=== PATIENT | female | born 1985 | race Caucasian/White ===

== ENCOUNTER → 2017-03-28 | Outpatient (CLI) | payer OTHER ==
[~2017-03-28] MED LIST: IBUP-103 PO
== END | disposition home or self-care (01) ==
LOC: C.LAB1850 07:33
PROVIDERS: ATTEND Obstetrics & Gynecology
DX: Z32.00 Encounter for pregnancy test, result unknown (principal)

== ENCOUNTER → 2017-04-18 | Outpatient (CLI) | payer OTHER ==
[2017-04-18 18:27] LABS: MANUAL MICROSCOPIC REQUIRED? NO; REVIEW REQ? NO; URINE APPEARANCE CLEAR (CLEAR); URINE BILIRUBIN NEG (NEG); URINE COLOR YELLOW; URINE NITRITE NEG (NEG); URINE SPECIFIC GRAVITY 1.012 (1.000-1.030); UROBILINOGEN NEG (NEG)
== END | disposition home or self-care (01) ==
LOC: C.LABSPEC 17:29
PROVIDERS: ATTEND Obstetrics & Gynecology
DX: Z34.01 Encounter for supervision of normal first pregnancy, first trimester (principal)

== ENCOUNTER → 2017-04-26 | Outpatient (CLI) | payer OTHER ==
[2017-04-30 02:42] LABS: CHLAMYDIA TRACH RNA*** NOT DETECTED (NOT DETECTED); GC (NEIS GONORRHOEAE)RNA** NOT DETECTED (NOT DETECTED)
== END | disposition home or self-care (01) ==
LOC: C.LABSPEC 15:36
PROVIDERS: ATTEND Obstetrics & Gynecology
DX: Z34.01 Encounter for supervision of normal first pregnancy, first trimester (principal)

== ENCOUNTER → 2017-04-26 | Outpatient (CLI) | payer OTHER ==
[2017-04-26 15:36] LABS: BASO % 0.5 %; BASO ABS # 0.05 K/uL (0-0.2); COMPLETE YES; EOS % 2.1 %; HEMATOCRIT 37.3 % (37-47); IG% 0.1 %; LYMPH % 24.4 %; LYMPH ABS # 2.28 K/uL (1.2-3.4); MEAN CELL VOLUME 86.9 fL (80-100); MEAN CORPUSCULAR HEMOGLOBIN 30.8 pg (25-34); MEAN CORPUSCULAR HGB CONC 35.4 g/dl (32-36); MEAN PLATELET VOLUME 10.3 fL (7.4-10.4); MONO % 9.3 %; NEUT % 63.6 %; PLATELET COUNT 348 K/uL (130-400); RED BLOOD COUNT 4.29 M/uL (4.2-5.4); WHITE BLOOD COUNT 9.33 K/uL (4.8-10.8)
== END | disposition home or self-care (01) ==
LOC: C.LAB1850 14:48
PROVIDERS: ATTEND Obstetrics & Gynecology
DX: Z34.01 Encounter for supervision of normal first pregnancy, first trimester (principal)

== ENCOUNTER → 2017-06-20 | Outpatient (CLI) | payer OTHER ==
[2017-06-20 16:42] LABS: GTGD 50 Grams
[2017-06-25 15:09] LABS: AFP CONCENTRATION 28.6 NG/ML; AFP MULTIPLE OF MEDIAN 0.75; AFPTS GESTATIONAL AGE 16.4 WEEKS; AFPTS INSULIN DEP DIABETIC? NO; AFPTS MATERNAL WT 130 LBS; ALPHA-FETOPROTEIN RACE CAUCASIAN=W; EDD DETERMINED BY ULTRASOUND; HISTORY OF NTD NO; REPEAT SAMPLE? NO
== END | disposition home or self-care (01) ==
LOC: C.LAB1850 14:31
PROVIDERS: ATTEND Obstetrics & Gynecology
DX: Z34.02 Encounter for supervision of normal first pregnancy, second trimester (principal); Z3A.00 Weeks of gestation of pregnancy not specified

== ENCOUNTER → 2017-09-12 | Outpatient (CLI) | payer OTHER ==
[2017-09-12 17:39] LABS: HEMATOCRIT 35.5 % (37-47)
[2017-09-12 17:46] LABS: GTGD 50 Grams
[2017-09-12 18:34] LABS: URINE APPEARANCE CLEAR (CLEAR); URINE BILIRUBIN NEG (NEG); URINE COLOR YELLOW; URINE NITRITE NEG (NEG); URINE PH 6.5 (4.5-7.5); URINE SPECIFIC GRAVITY 1.015 (1.000-1.030); UROBILINOGEN NEG (NEG)
[2017-09-12 18:44] LABS: MANUAL MICROSCOPIC REQUIRED? NO; REVIEW REQ? NO
== END | disposition home or self-care (01) ==
LOC: C.LAB1850 17:10
PROVIDERS: ATTEND Obstetrics & Gynecology
DX: Z34.03 Encounter for supervision of normal first pregnancy, third trimester (principal)

== ENCOUNTER → 2017-11-14 | Outpatient (CLI) | payer OTHER | END | disposition home or self-care (01) | LOC: C.LABSPEC 18:10 | PROVIDERS: ATTEND Obstetrics & Gynecology | DX: Z34.03 Encounter for supervision of normal first pregnancy, third trimester (principal) ==

== ENCOUNTER 2017-11-22 07:23 | Outpatient (CLI) | payer OTHER ==
[~2017-11-22] VITALS: Ht 167.6 cm; Wt 67.1 kg
[2017-11-22] MEDS ORDERED: TERBUTALINE SULFATE 1 MG/ML VIAL SQ ONE (07:45)
[2017-11-22 09:30] VITALS: Ht 167.6 cm; Wt 67.1 kg
[2017-11-22] MEDS ORDERED: PRENTAB26 PO (10:18)
[2017-12-01] MEDS ORDERED: OXYC-57 PO (08:19)
[2017-12-01] MEDS ORDERED: MTR600X PO (08:19)
== END 2017-11-22 09:45 | disposition home or self-care (01) ==
LOC: C.OPB 07:23 → C.LD 07:25 → C.OPB 09:45
PROVIDERS: ATTEND Obstetrics & Gynecology
DX: O32.1XX0 Maternal care for breech presentation, not applicable or unspecified (principal); Z3A.38 38 weeks gestation of pregnancy

== ENCOUNTER 2017-11-29 05:50 | Inpatient (IN) | payer OTHER ==
--- NOTE | 2017-11-28 11:45 | HISTORY & PHYSICAL EXAMINATION ---
DATE OF ADMISSION: 11/29/2017 HISTORY OF PRESENT ILLNESS: Olivia will be 39 weeks on November 29. She has breech presentation. This was confirmed on ultrasound multiple times. Because of that, she is scheduled for a primary section. has been uncomplicated. She has no major health problems bar scoliosis. PAST HISTORY: She has never been . PAST MEDICAL HISTORY: Scoliosis. PAST SURGICAL HISTORY: No major surgeries. MEDICATIONS: Prenatals. DRUG ALLERGIES: PENICILLIN; HOWEVER, THIS WAS ONLY A RASH A CHILD. IODINE SOLUTION AND BEE STINGS. SOCIAL HISTORY: Nonsmoker and nondrinker. FAMILY HISTORY: Negative. PHYSICAL EXAMINATION: VITAL SIGNS: Stable. She is afebrile. Blood pressure 110/70 and weight 145. CHEST: Clear. CARDIOVASCULAR: Normal rate and rhythm. No audible murmur. ABDOMEN: Gravid. heart rate 140. Ultrasound confirms breech presentation. IMPRESSION AND PLAN: Reviewed risks, benefits and alternatives. Really, there is no good alternative to section. The patient agrees. Discussed risks of including, but not limited to the risks of bleeding, infection, injury to bowel, bladder, ureter, vessels, deep vein thrombosis and pulmonary embolus. After full informed discussion, we will arrange for . Discussed the use of Ancef as well. THE PATIENT HAS A MILD PENICILLIN REACTION WHEN SHE WAS 5. She believes she has taken Keflex in the past. I think is the best choice for her.
[2017-11-28 12:52] VITALS: BMI 23.0
[2017-11-28 13:24] LABS: BASO % 0.3 %; BASO ABS # 0.03 K/uL (0-0.2); EOS % 0.9 %; EOS ABS # 0.09 K/uL (0-0.5); HEMATOCRIT 39.1 % (37-47); HEMOGLOBIN 13.4 g/dL (12.0-16.0); IG# 0.03 K/uL (0.00-0.02); LYMPH % 24.4 %; LYMPH ABS # 2.38 K/uL (1.2-3.4); MEAN CORPUSCULAR HEMOGLOBIN 29.1 pg (25-34); MEAN CORPUSCULAR HGB CONC 34.3 g/dl (32-36); MEAN PLATELET VOLUME 10.3 fL (7.4-10.4); MONO % 6.4 %; MONO ABS # 0.62 K/uL (0.11-0.59); NEUT % 67.7 %; NEUT ABS # 6.59 K/uL (1.4-6.5); PLATELET COUNT 313 K/uL (130-400); RED CELL DISTRIBUTION WIDTH CV 13.6 % (11.5-14.5); RED CELL DISTRIBUTION WIDTH SD 41.6 fL (36.4-46.3); WHITE BLOOD COUNT 9.74 K/uL (4.8-10.8)
[2017-11-29] VITALS (10 sets, daily range): BP systolic 100–110; BP diastolic 66–75; PULSE 54–68; TEMP 36.4–37.3; O2SAT 98–100; Ht 167.6 cm; Wt 66.0 kg
[~2017-11-29] VITALS: Ht 167.6 cm; Wt 66.0 kg
[~2017-11-29 05:50] MED LIST changes: -IBUP-103 PO; +PRENTAB26 PO
[2017-11-29] MEDS ORDERED: CEFAZOLIN IV 2,000 MG in SYRINGE 0 ML IV SCH (06:00)
[2017-11-29] MEDS ORDERED: CITRIC ACID/SODIUM CITRATE 15 ML UDC PO SCH (06:00)
[2017-11-29 06:17] LABS: BASO % 0.4 %; BASO ABS # 0.04 K/uL (0-0.2); EOS % 1.8 %; EOS ABS # 0.18 K/uL (0-0.5); HEMATOCRIT 38.8 % (37-47); HEMOGLOBIN 13.6 g/dL (12.0-16.0); IG# 0.05 K/uL (0.00-0.02); LYMPH % 27.2 %; LYMPH ABS # 2.68 K/uL (1.2-3.4); MEAN CELL VOLUME 84.3 fL (80-100); MEAN CORPUSCULAR HEMOGLOBIN 29.6 pg (25-34); MEAN PLATELET VOLUME 10.4 fL (7.4-10.4); MONO % 9.3 %; MONO ABS # 0.92 K/uL (0.11-0.59); NEUT % 60.8 %; PLATELET COUNT 291 K/uL (130-400); RED CELL DISTRIBUTION WIDTH CV 13.6 % (11.5-14.5); WHITE BLOOD COUNT 9.87 K/uL (4.8-10.8)
[2017-11-29 06:18] LABS: MEAN CORPUSCULAR HGB CONC 35.1 g/dl (32-36)
[2017-11-29] MEDS ORDERED: NURSING VERBAL MED ORDER ONE (06:30)
[2017-11-29] MEDS ORDERED: LACTATED RINGER'S 1000ML 1,000 ML IV ONE (06:45)
--- NOTE | 2017-11-29 07:25 | History & Physical Bridge Note ---
H&P Re-Evaluation Bridge Note: I have examined the patient, reviewed the History & Physical and in the interval since the performance of the History & Physical I have noted the following changes of clinical significance: No changes noted
[2017-11-29] MEDS ORDERED: CITRIC ACID/SODIUM CITRATE 15 ML UDC PO ONE (07:30)
[2017-11-29] MEDS ORDERED: OXYTOCIN INJ 10 UNITS/ML VIAL ONE (07:31)
[2017-11-29] MEDS ORDERED: FENTANYL CITRATE INJ 50 MCG/1 ML 2 ML VIAL ONE (07:34)
[2017-11-29] MEDS ORDERED: MoRPHine SULFATE PF 1 MG/ML 10 ML AMP/VIAL ONE (07:34)
[2017-11-29] MEDS ORDERED: PHENYLEPHRINE 100MCG/ML 5ML SYR ONE (08:32)
--- NOTE | 2017-11-29 08:36 | [facility] Post Operative Brief Note ---
Immediate Operative Summary Operative Date Nov 29, 2017. Pre-Operative Diagnosis Primary caesarean section for breech presentation Post-Operative Diagnosis same Procedure(s) Performed low section transverse caesarean section delivery for live female at [address] Imelda Miranda Fur Designer Surgeon(s) Dr. Imelda Monk Estimated Blood Loss 500 cc Findings Consistent with Post-Op Diagnosis Specimens placenta cord blood cord blood gases (arterial and venous) Drains Fatima Anesthesia Type Spinal Complication(s) none Disposition Accompanied Pt To Recover: no Disposition: L&D
[2017-11-29] MEDS ORDERED: OXYTOCIN INJ 20 UNITS in LACTATED RINGER'S 1000ML 1,000 ML IV SCH (08:38)
[2017-11-29] MEDS ORDERED: LACTATED RINGER'S 1000ML 1,000 ML IV SCH (08:38)
[2017-11-29] MEDS ORDERED: BENZOCAINE 20% AER SPR 82.5 GM CAN EXT PRN (08:45)
[2017-11-29] MEDS ORDERED: MAGNESIUM HYDROXIDE SUSP 30 ML UDC PO PRN (08:45)
[2017-11-29] MEDS ORDERED: SENNA 8.6 MG TAB PO PRN (08:45)
[2017-11-29] MEDS ORDERED: MEPERIDINE HCL 50 MG/ML CARP IV PRN ×2 (08:45)
[2017-11-29] MEDS ORDERED: HYDROCORTISONE ACETATE 25 MG SUPP PR PRN (08:45)
[2017-11-29] MEDS ORDERED: LANOLIN OINT EXT PRN (08:45)
[2017-11-29] MEDS ORDERED: SUPERCREAM 0.870 % 15GM JAR EXT PRN (08:45)
[2017-11-29] MEDS ORDERED: NALOXONE HCL INJ 0.08 MG in SYRINGE 1.8 ML IV PRN (08:50)
[2017-11-29] MEDS ORDERED: SODIUM CHLORIDE 0.9% 1000ML 1,000 ML IV PRN (08:50)
[2017-11-29] MEDS ORDERED: LACTATED RINGER'S 1000ML 500 ML IV PRN (08:50)
[2017-11-29] MEDS ORDERED: NALOXONE HCL INJ 1 MG in SODIUM CHLORIDE 0.9% 1000ML 1,000 ML IV PRN ×4 (08:50)
[2017-11-29] MEDS ORDERED: NALOXONE HCL 0.4 MG/1 ML VIAL/CARP IV PRN (09:00)
[2017-11-29] MEDS ORDERED: DiphenhydrAMINE HCL 50 MG/ML VIAL IV PRN (09:00)
[2017-11-29] MEDS ORDERED: NO NARCOTICS OR SEDATIVES SCH (09:00)
[2017-11-29] MEDS ORDERED: EpHEDrine SULFATE INJ 50 MG/ML AMP IV PRN (09:00)
[2017-11-29] MEDS ORDERED: NALBUPHINE HCL INJ 10 MG/ML AMP IV PRN (09:00)
[2017-11-29] MEDS ORDERED: PROMETHAZINE HCL INJ 25 MG in SODIUM CHLORIDE 0.9% 50ML 50 ML IV PRN (09:00)
[2017-11-29] MEDS ORDERED: MoRPHine SULFATE PF 1 MG/ML 10 ML AMP/VIAL EPI PRN (09:00)
--- NOTE | 2017-11-29 09:39 | Anesthesiology Progress Note ---
Anesthesia Post Op Note Date & Time Nov 29, 2017 at 09:38 Notes Mental Status: alert / awake / arousable, participated in evaluation Pt Amnestic to Procedure: Yes Nausea / Vomiting: adequately controlled Pain: adequately controlled Airway Patency, RR, SpO2: stable & adequate BP & HR: stable & adequate Hydration State: stable & adequate Neuraxial Anesthesia: was administered, sensory block is resolving Anesthetic Complications: no major complications apparent l1 sensory level
--- NOTE | 2017-11-29 10:27 | OPERATIVE REPORT ---
DATE OF OPERATION: 11/29/2017 PREOPERATIVE DIAGNOSIS: Primary section for breech presentation. POSTOPERATIVE DIAGNOSIS: Same. PROCEDURE: Low segment transverse section. SURGEON: Dr. Miranda. STEREOTYPE MOLDER: Dr. Monk. ESTIMATED BLOOD LOSS: 500 mL. FINDINGS: Consistent with postoperative diagnosis. SPECIMENS: Placenta, cord blood, cord gases. DRAINS: Fatima. ANESTHETIC: Spinal. COMPLICATIONS: None. DISPOSITION: Labor and delivery. DESCRIPTION OF PROCEDURE: Olivia had ultrasound confirming breech presentation on the morning, was given a spinal anesthetic a Fatima catheter then inserted by nursing and she was prepped and draped in supine position with a leftward tilt. Pickups with teeth were used to confirm adequate block and IV Ancef was given preoperatively. A scalpel used to make a Pfannenstiel incision dissecting down to subcutaneous fat to the fascia in the midline. Fascia cut laterally with curved Mayos and then released superiorly and inferiorly with the rectus muscle from the rectus muscles with the curved Mayos. Rectus muscle split, peritoneal cavity entered in a superior location and then opening expanded to allow exposure. Bladder retractor placed, Metzenbaums used to dissect away the bladder flap. At this stage, we readjusted the bladder retractor and made a low transverse incision on the low segment of the uterus. Entry was done bluntly with a hemostat and then once into the uterus, we opened the hysterotomy bluntly with the caterpillar tractor operator's fingers to allow delivery. Baby's feet actually presenting first bilateral footling breech, both feet were then extracted and then back was turned to the anterior position with gentle traction. I was unable to get each arm delivered by sweeping against the chest gently and then we delivered with gentle pressure on the abdomen and flexion of the head. A live vigorous female . Cord clamped and cut. Cord gases obtained. Cord blood obtained. Placenta removed with gentle traction. IV Pitocin started. We ensured all placenta removed with a moist lap. There were no abnormalities in the uterus. Specifically, no septum or bicornuate uterus and adnexa were normal. Hemostasis improved with IV Pitocin. Uterus closed in the usual fashion, a running 0 Monocryl locked and second reinforcing nonlocked layer. After generous irrigation and suction of the cul-de-sac and bladder flap regions, uterus placed back in the peritoneal cavity. Hemostasis still excellent. Rectus muscles reapproximated with 0 Vicryl, fascia closed with 0 Vicryl, subcutaneous fat closed with 3-0 Vicryl after first being irrigated with saline and then 4-0 subcuticular Monocryl closures and Steri-Strips. Urine clear at the end of the procedure, sponge and instrument counts correct. I attest to the content of the Intraoperative Record and any orders documented therein. Any exception s are noted below.
[2017-11-29] MEDS: SIMETHICONE 80 MG CHEW PO SCH ×4 (11:49→19:37)
[2017-11-29] MEDS: ONDANSETRON INJ 2 MG/ML 2 ML VIAL IV PRN ×2 (14:27→20:48)
[2017-11-29] MEDS: KETOROLAC TROMETHAMINE 30 MG/ML VIAL IV. PRN (17:30)
[2017-11-29] MEDS: DOCUSATE SODIUM 100 MG CAP PO SCH (19:37)
[2017-11-30 00:25] VITALS: BP 107/70; PULSE 49; TEMP 36.5; O2SAT 100
[2017-11-30] MEDS: KETOROLAC TROMETHAMINE 30 MG/ML VIAL IV. PRN (00:54)
[2017-11-30 01:30] VITALS: O2SAT 100
[2017-11-30 02:40] VITALS: O2SAT 100
[2017-11-30] MEDS ORDERED: DC INTRASPINAL MORPHINE SCH (03:00)
[2017-11-30] MEDS ORDERED: ZOLPIDEM TARTRATE 5 MG TAB PO PRN (03:01)
[2017-11-30] MEDS ORDERED: OXYCODONE/ACETAMINOPHEN 5-325 TAB PO PRN (03:01)
[2017-11-30] MEDS ORDERED: ONDANSETRON INJ 2 MG/ML 2 ML VIAL IV PRN (03:01)
[2017-11-30] MEDS ORDERED: KETOROLAC TROMETHAMINE 30 MG/ML VIAL IV. PRN (03:01)
[2017-11-30] MEDS ORDERED: DiphenhydrAMINE HCL 50 MG/ML VIAL IV PRN (03:01)
[2017-11-30] MEDS ORDERED: MEPERIDINE HCL 50 MG/ML CARP IV PRN ×2 (03:01)
[2017-11-30] MEDS ORDERED: PROMETHAZINE HCL INJ 25 MG in SODIUM CHLORIDE 0.9% 50ML 50 ML IV PRN (03:01)
[2017-11-30 03:55] VITALS: BP 101/65; PULSE 64; TEMP 36.4; O2SAT 99
--- NOTE | 2017-11-30 07:14 | Progress Note ---
Subjective Nov 30, 2017. Subjective conversation w/ patient, physical exam Voiding: zapata catheter in place Feeding Type: Breast Feeding Objective Vital Signs Date Time Temp Pulse Resp B/P (MAP) Pulse Ox O2 Delivery O2 Flow Rate FiO2 11/30/17 03:55 36.4 64 18 101/65 (77) 99 Room Air 11/30/17 02:40 18 100 11/30/17 01:30 18 100 11/30/17 00:25 18 100 11/30/17 00:25 100 Room Air 11/30/17 00:25 36.5 49 18 107/70 (82) 100 Room Air 11/29/17 23:30 18 100 11/29/17 19:45 16 98 11/29/17 19:45 36.5 56 16 104/71 (82) 98 Room Air 11/29/17 17:30 16 99 11/29/17 16:30 16 98 11/29/17 15:25 98 Room Air 11/29/17 15:25 36.6 66 16 100/67 (78) 98 Room Air 11/29/17 15:25 16 98 11/29/17 14:40 36.5 64 16 103/66 (78) 100 Room Air 11/29/17 14:40 16 100 11/29/17 13:40 36.5 54 16 107/69 (82) 99 Room Air 11/29/17 13:40 16 99 11/29/17 12:35 18 99 11/29/17 12:35 37.3 68 18 108/73 (85) 99 Room Air 11/29/17 12:05 36.4 58 16 110/75 (87) 99 Room Air 11/29/17 11:35 18 100 11/29/17 11:35 36.4 61 18 103/66 (78) 100 Room Air 11/29/17 11:35 100 Room Air Physical Exam General Appearance: WELL-APPEARING, NO APPARENT DISTRESS Respiratory/Chest: lungs clear Cardiovascular: regular rate, rhythm Fundus: Firm Incision Description: Clean, Dry & Intact (dressing removed) Extremities: no calf tenderness Laboratory Results Last 24 Hours Test 11/30/17 07:08 Assessment and Plan Post-Op Day#: 1 Continue Routine Care: - begin ambulation - routine post C/S care - doing well
[2017-11-30 08:00] VITALS: BP 110/71; PULSE 65; TEMP 37.4; O2SAT 99
[2017-11-30 08:02] LABS: BASO % 0.2 %; BASO ABS # 0.02 K/uL (0-0.2); EOS ABS # 0.12 K/uL (0-0.5); HEMATOCRIT 34.8 % (37-47); HEMOGLOBIN 11.6 g/dL (12.0-16.0); IG# 0.03 K/uL (0.00-0.02); LYMPH ABS # 1.47 K/uL (1.2-3.4); MEAN CELL VOLUME 86.4 fL (80-100); MEAN CORPUSCULAR HEMOGLOBIN 28.8 pg (25-34); MEAN CORPUSCULAR HGB CONC 33.3 g/dl (32-36); MEAN PLATELET VOLUME 10.7 fL (7.4-10.4); MONO % 7.4 %; MONO ABS # 0.91 K/uL (0.11-0.59); NEUT % 79.2 %; NEUT ABS # 9.68 K/uL (1.4-6.5); PLATELET COUNT 233 K/uL (130-400); RED CELL DISTRIBUTION WIDTH CV 13.7 % (11.5-14.5); RED CELL DISTRIBUTION WIDTH SD 43.2 fL (36.4-46.3); WHITE BLOOD COUNT 12.23 K/uL (4.8-10.8)
[2017-11-30] MEDS: IBUPROFEN 600 MG TAB PO PRN ×4 (08:57→21:10)
[2017-11-30] MEDS: OXYCODONE/ACETAMINOPHEN 5-325 TAB PO PRN ×4 (08:57→21:14)
[2017-11-30] MEDS: DOCUSATE SODIUM 100 MG CAP PO SCH ×2 (08:58→20:23)
[2017-11-30] MEDS: SIMETHICONE 80 MG CHEW PO SCH ×4 (08:59→20:23)
[2017-11-30] MEDS: PRENATAL VITAMIN TAB PO SCH (09:00)
[2017-11-30 15:00] VITALS: BP 101/67; PULSE 62; TEMP 37.1; O2SAT 97
[2017-11-30] MEDS ORDERED: BISACODYL 5 MG TABEC PO ONE (22:00)
[2017-12-01 00:05] VITALS: BP 106/71; PULSE 48; TEMP 36.6
[2017-12-01] MEDS: OXYCODONE/ACETAMINOPHEN 5-325 TAB PO PRN ×3 (01:24→13:57)
[2017-12-01] MEDS: IBUPROFEN 600 MG TAB PO PRN ×3 (01:24→13:57)
[2017-12-01] MEDS ORDERED: BISACODYL 10 MG SUPP PR PRN (07:00)
[2017-12-01] MEDS: DOCUSATE SODIUM 100 MG CAP PO SCH (07:58)
[2017-12-01] MEDS: SIMETHICONE 80 MG CHEW PO SCH ×2 (07:58→11:39)
[2017-12-01] MEDS: PRENATAL VITAMIN TAB PO SCH (07:59)
[2017-12-01 08:00] VITALS: BP 103/67; PULSE 56; TEMP 36.7; O2SAT 98
--- NOTE | 2017-12-01 08:18 | Progress Note ---
Subjective Dec 01, 2017. Subjective conversation w/ patient, physical exam, chart review Ambulation: ambulating normally Voiding: no incontinence Diet Tolerance: Regular Diet Lochia: Small Feeding Type: Breast Feeding Objective Vital Signs Date Time Temp Pulse Resp B/P (MAP) Pulse Ox O2 Delivery O2 Flow Rate FiO2 12/01/17 00:05 36.6 48 18 106/71 (83) 12/01/17 00:05 Room Air 11/30/17 15:00 37.1 62 16 101/67 (78) 97 Room Air 11/30/17 15:00 97 Room Air Physical Exam General Appearance: WELL-APPEARING Abdomen: non tender Fundus: Firm Incision Description: Clean, Dry & Intact Extremities: no calf tenderness Laboratory Results Last 24 Hours Test 12/01/17 06:00 Assessment and Plan Post-Op Day#: 2 Continue Routine Care: Postop day #2 from ambulating breast-feeding doing well wishes discharged today
[2017-12-01] MEDS ORDERED: OXYC-57 PO (08:19)
[2017-12-01] MEDS ORDERED: MTR600X PO (08:19)
--- NOTE | 2017-12-01 08:20 | Discharge Instructions ---
Discharge Instructions Date of Service Dec 01, 2017. Admission Reason for Admission: Breech Presentation, Discharge Discharge Diagnosis / Problem: c/s Discharge Goals Goal(s): Routine recovery after Activity Recommendations Activity Limitations: per Instructions/Follow-up section . Instructions / Follow-Up Instructions / Follow-Up ACTIVITY RECOMMENDATIONS: * Gradual return to full activity over the next 2-3 weeks. * No lifting - nothing heavier than baby over the next 2-3 weeks. * Do not engage in vigorous exercise, sexual activity or sports until cleared by your physician. * Do not drive or operate any motorized equipment until cleared by your physician. * You may shower/bathe daily. MEDICATIONS: For discomfort or pain, you may use Acetaminophen (Tylenol), Ibuprofen (Advil), or Naproxen (Aleve) following the package directions. For constipation you may use Colace following the package directions. BREAST CARE: If you are not breast feeding: * Wear a supportive bra 24 hours a day for one to two weeks. * Avoid stimulating your breasts and nipples as much as possible during the first few weeks after delivery. * When taking a shower, have the warm water hit your back, not breasts. * When your breasts feel full, apply ice packs. Usually three to four times a day helps ease the discomfort. * Take a mild pain medication (Tylenol / Motrin) when you are uncomfortable. If breast feeding: * Use breast milk to lubricate nipples. Lansinoh cream may be used for sore nipples. You do not need to remove cream prior to breast feeding. If using a different brand of cream, check the label for directions regarding removal of cream prior to nursing. * Wear a supportive bra. * If having problems with breasts or breast feeding, call a area development consultant or your health care provider. SPECIAL CARE INSTRUCTIONS: When you are discharged from the hospital, it is important for you to follow the instructions listed below: * During the first week at home, you should be able to care for yourself and your baby. In addition, the usual light household activities are encouraged. * Limit your activities to the way you feel. Do not try to clean the house or move furniture. Be sensible. * If you actively engage in sports and have done so up until the time of your delivery, you may resume these activities as soon as you feel able. This may take up to one month or even longer. Use good judgment. * Continue to take your vitamins for at least six weeks after the of your baby. * Your diet need not be limited unless you were on a special diet before your delivery. Breast-feeding mothers need around 2500 calories per day and at least 64-80 ounces of fluid per day (8 to 10 glasses). * You should eat foods from the four major food groups. Crash diets or fad diets are to be avoided. Eating lean meats, fresh fruits and vegetables, low-fat dairy products, high fiber foods and a regular exercise program, will help you get back to your pre- weight without putting your health at risk. * Constipation is sometimes a problem after delivery. Take a mild laxative as needed. If breast feeding, Milk of Magnesia is acceptable to use. You may use a suppository or Fleets enema. * A daily shower or tub bath is suggested. Wash incision daily with warm soapy water and pat dry. It doesn't need to be covered unless drainage is present. * A bloody vaginal discharge will usually continue until around four weeks . A small amount of bleeding may continue for as long as six weeks. Vaginal discharge changes from the bright red bleeding after delivery to pink then brownish and finally yellowish-pink before becoming white and disappearing. * Bleeding may increase with activity. Your first period may come in 4-8 weeks. If you are breast feeding, your period may be delayed even longer. * [place] (sex) can begin whenever both you and your partner feel comfortable and do not have any form of genital infection. It is recommended that you wait at least six weeks for internal and external healing to occur. If you have questions, please talk to your health care practitioner. A condom should be used to prevent infection and . * Foreplay, gentle intercourse and lubrication is very important the first several times to prevent pain. A water-based lubricant such as K-Y jelly or Astroglide may be used. * If you have RH negative blood and your baby is RH positive, you will receive RHOGAM by injection prior to discharge. The nurse will give you a card to keep with you that has the date and place that you received RHOGAM after delivery. * During your care, you had a Rubella screen done to check for the presence of rubella antibodies in your blood. If your test was negative, you will receive a Rubella vaccine prior to discharge. This vaccine may cause a fever, soreness at the injection site and flu-like symptoms. If these symptoms persist, notify your health care practitioner. is not advised for one month after a Rubella vaccine. * Verbalizes understanding of car seat law as reviewed with patient nursing. * Car Seat hand-out given and reviewed with patient by nursing. * Shaken baby information reviewed with patient by nursing. Call you doctor if: * Heavy bleeding (saturating several pads an hour) or passing clots the size of your fist. * A fever >101 degrees F (38.3 degrees C) on two occasions four hours apart and /or chills. * Unusual pain in the pelvic or vaginal areas. * Call the doctor for any increased redness, drainage or swelling around the incision and any pain unrelieved by prescribed pain medication. * "Baby Blues" lasting longer than two weeks. If you have any questions or concerns, call your health care practitioner at . FOLLOW UP VISIT: * Please call the office at to schedule a 6 week examination. It is important you keep this appointment. It is important for you to make arrangements for either yearly or twice yearly check-ups thereafter. Current Hospital Diet Patient's current hospital diet: Regular OB Diet Discharge Diet Recommended Diet: Regular OB Diet Procedures Procedures Performed: low section transverse caesarean section delivery for live female infant at 0810 Pending Studies Studies pending at discharge: no Medical Emergencies . Who to Call and When: Medical Emergencies: If at any time you feel your situation is an emergency, please call 911 immediately. . Non-Emergent Contact Non-Emergency issues call your: [employer] . . "Provider Documentation" section prepared by Christian Miranda. .
[2017-12-01 09:10] LABS: HEMOGLOBIN 12.2 g/dL (12.0-16.0)
[2017-12-01 14:51] VITALS: BP_DIAS 67; PULSE 56; TEMP 36.7
== END 2017-12-01 15:00 | disposition home or self-care (01) | DRG 766 ==
LOC: C.LD 05:50 → EDSTATUS 07:30 → C.OBG 11:25
PROVIDERS: ADMIT Obstetrics & Gynecology; ATTEND Obstetrics & Gynecology
PROC: 10D00Z1 Extraction of Products of Conception, Low, Open Approach (ICD-10-PCS; principal; 2017-11-29 07:30)
DX: O32.8XX0 Maternal care for other malpresentation of fetus, not applicable or unspecified (principal); O26.893 Other specified pregnancy related conditions, third trimester; M41.9 Scoliosis, unspecified; Z3A.39 39 weeks gestation of pregnancy; Z37.0 Single live birth; Z88.0 Allergy status to penicillin; Z88.3 Allergy status to other anti-infective agents; Z91.030 Bee allergy status

== ENCOUNTER → 2017-12-09 | Outpatient (CLI) | payer OTHER ==
[~2017-12-09] MED LIST changes: +MTR600X PO; +OXYC-57 PO
== END | disposition home or self-care (01) ==
LOC: C.LAB1850 16:19
PROVIDERS: ATTEND Obstetrics & Gynecology
DX: R30.0 Dysuria (principal)